=== PATIENT | male | born 2000 | race Caucasian/White ===

== ENCOUNTER 2025-01-15 09:54 | Emergency (ER) | payer OTHER ==
[~2025-01-15] VITALS: Ht 180.3 cm; Wt 90.8 kg
[2025-01-15] MEDS ORDERED: KETO10TAB PO (12:07)
[2025-01-15] MEDS ORDERED: METH-1165 PO (12:07)
[2025-01-15] MEDS: KETOROLAC 30 MG/ML 1ML VIAL IM ONE (12:09)
[2025-01-15] MEDS: ACETAMINOPHEN 325 MG TAB PO ONE (12:09)
[2025-01-15 12:25] VITALS: BP 140/64; TEMP 97.2; O2SAT 98
== END 2025-01-15 12:27 | disposition home or self-care (01) ==
LOC: M ED 09:54
DX: S39.012A Strain of muscle, fascia and tendon of lower back, initial encounter (principal); Y92.9 Unspecified place or not applicable; Y93.B3 Activity, free weights; Y99.9 Unspecified external cause status; Z79.2 Long term (current) use of antibiotics; Z79.899 Other long term (current) drug therapy
CPT/HCPCS: 96372; 99283; J1885